=== PATIENT | female | born 1935 | race Caucasian/White ===

== ENCOUNTER 2017-09-23 21:32 | Emergency (ER) | payer OTHER ==
[~2017-09-23] VITALS: Ht 147.3 cm; Wt 55.0 kg
[~2017-09-23 21:32] MED LIST: ALBU8.5H8 IH; ALEN70TA69 PO; ASPI-1198 PO; ATOR10TA84 PO; CALC600T2 PO; ESCI10TA PO; FOLI1TAB15 PO; HYDR1CAP2 PO; OMEG300C3 PO; RABE20TA60 PO; VALS160T2 PO
[2017-09-23] MEDS ORDERED: GABA-529 PO (21:47)
[2017-09-23] MEDS ORDERED: VALS1TAB75 PO (21:47)
[2017-09-23 22:24] LABS: BASOPHILS % (AUTO) 0.4 % (0.0-2.0); EOSINOPHILS % (AUTO) 0.6 % (1.0-6.0); HEMATOCRIT 43.3 % (36-46); HEMOGLOBIN 14.6 g/dL (12.0-16.0); LYMPHOCYTES # (AUTO) 1.9 K/uL (1.0-4.8); MEAN CORPUSCULAR HEMOGLOBIN 30.9 pg (26.0-34.0); MEAN CORPUSCULAR HGB CONC 33.8 G/dL (31.0-37.0); MEAN CORPUSCULAR VOLUME 91 fL (80-100); MONOCYTES # (AUTO) 0.6 K/uL (0.1-1.0); NEUTROPHILS # (AUTO) 10.1 K/uL (1.8-7.7); PLATELET COUNT (AUTO) 171 K/uL (150-450); RED BLOOD CELL COUNT(AUTO) 4.75 MIL/uL (4.00-5.20); RED CELL DISTRIBUTION WIDTH 14.4 % (11.5-14.5)
[2017-09-23] MEDS ORDERED: SODIUM CHLORIDE 0.9% 1,000 ML IV ONE (22:30)
[2017-09-23] MEDS ORDERED: ONDANSETRON HCL 4 MG TABLET PO ONE (22:30)
[2017-09-23 22:32] LABS: GLUCOSE,POINT OF CARE 133 MG/DL (70-110)
[2017-09-23 22:35] LABS: ANION GAP 4 mmol/L (8-16); CALCIUM, TOTAL 9.5 mg/dL (8.8-10.5); CARBON DIOXIDE 33 mmol/L (22-29); CHLORIDE 100 mmol/L (98-107); CREATININE 0.87 mg/dL (0.60-1.30); GLOMERULAR FILTR. RATE CALC > 60 mL/min (>60); GLUCOSE,RANDOM 156 mg/dL (70-110); POTASSIUM 3.2 mmol/L (3.5-5.1); SODIUM SERUM 137 mmol/L (136-145); UREA NITROGEN, BLOOD 23 mg/dL (7-18)
[2017-09-23 22:37] LABS: PROTHROMBIN TIME 10.7 SEC (9.4-11.6)
[2017-09-23 22:44] LABS: ALANINE AMINOTRANSFERASE 27 U/L (12-78); ALBUMIN 3.8 g/dL (3.4-5.0); ALKALINE PHOSPHATASE 40 U/L (46-116); ASPARTATE AMINOTRANSFERASE 26 U/L (15-37); BILIRUBIN,TOTAL 0.9 mg/dL (0.1-1.0); TOTAL PROTEIN, SERUM 7.7 g/dL (6.4-8.2)
[2017-09-23] MEDS ORDERED: POTASSIUM CHLORIDE 20 MEQ ER TABLET PO ONE (23:45)
[2017-09-24 01:04] VITALS: BP 114/62
== END 2017-09-24 01:09 | disposition home or self-care (01) ==
LOC: EMS 21:34
DX: R42 Dizziness and giddiness (principal); R51 Headache; E78.00 Pure hypercholesterolemia, unspecified; I10 Essential (primary) hypertension; J45.909 Unspecified asthma, uncomplicated; Z79.82 Long term (current) use of aspirin
CPT/HCPCS: 36415; 70450; 80053; 82948; 82962; 84484; 85025; 85610; 93005; 96360; 96361; 99285; J7030; Q0162

== ENCOUNTER 2019-01-10 10:59 | Emergency (ER) | payer OTHER ==
[~2019-01-10] VITALS: Ht 149.9 cm; Wt 54.5 kg
[~2019-01-10 10:59] MED LIST changes: -ALBU8.5H8 IH; -ALEN70TA69 PO; -CALC600T2 PO; -ESCI10TA PO; -FOLI1TAB15 PO; +GABA-529 PO; -OMEG300C3 PO; -RABE20TA60 PO; -VALS160T2 PO; +VALS1TAB75 PO
[2019-01-10] MEDS ORDERED: ALEN70TA10 PO (11:10)
[2019-01-10] MEDS ORDERED: FOLI1 PO (11:13)
[2019-01-10] MEDS ORDERED: CALC-1194 PO (11:13)
[2019-01-10] MEDS ORDERED: VITAD1000 PO (11:13)
[2019-01-10] MEDS ORDERED: FISH1CAP63 PO (11:13)
[2019-01-10] MEDS ORDERED: MIRT15 PO (11:13)
[2019-01-10] MEDS ORDERED: TEMA7.5C17 PO (11:13)
[2019-01-10 11:30] LABS: GLUCOSE,POINT OF CARE 121 MG/DL (70-110)
[2019-01-10 12:27] LABS: BASOPHILS % (AUTO) 0.3 % (0.0-2.0); EOSINOPHILS % (AUTO) 0.1 % (1.0-6.0); HEMATOCRIT 41.9 % (36-46); HEMOGLOBIN 13.7 g/dL (12.0-16.0); LYMPHOCYTES # (AUTO) 0.9 K/uL (1.0-4.8); MEAN CORPUSCULAR HEMOGLOBIN 29.4 pg (26.0-34.0); MEAN CORPUSCULAR HGB CONC 32.7 G/dL (31.0-37.0); MEAN CORPUSCULAR VOLUME 90 fL (80-100); MONOCYTES # (AUTO) 0.4 K/uL (0.1-1.0); MONOCYTES % (AUTO) 3.2 % (2.0-9.0); NEUTROPHILS % (AUTO) 89.4 % (40.0-70.0); PLATELET COUNT (AUTO) 180 K/uL (150-450); RED BLOOD CELL COUNT(AUTO) 4.65 MIL/uL (4.00-5.20); RED CELL DISTRIBUTION WIDTH 14.3 % (11.5-14.5)
[2019-01-10 12:32] LABS: CALCIUM, TOTAL 9.6 mg/dL (8.8-10.5); CREATININE 0.94 mg/dL (0.60-1.30); POTASSIUM 3.7 mmol/L (3.5-5.1)
[2019-01-10 12:35] LABS: PROTHROMBIN TIME 10.1 SEC (9.4-11.6)
[2019-01-10 12:57] LABS: ALBUMIN 3.7 g/dL (3.4-5.0); TOTAL PROTEIN, SERUM 7.2 g/dL (6.4-8.2)
[2019-01-10] MEDS ORDERED: ONDANSETRON HCL 4 MG/2 ML VIAL IVP ONE (13:00)
[2019-01-10] MEDS ORDERED: ASPIRIN 325 MG TABLET PO ONE (13:00)
[2019-01-10] MEDS: NITROGLYCERIN 2% (1 GM=INCH) PACKET TP SCH ×2 (13:02→15:12)
[2019-01-10 13:11] LABS: BILIRUBIN,URINE NEGATIVE (NEGATIVE); GLUCOSE, URINE (UA) NEGATIVE (NEGATIVE); KETONES,URINE TRACE mg/dL (NEGATIVE); LEUKOCYTE ESTERASE ,URINE SMALL (NEGATIVE); NITRATE,URINE NEGATIVE (NEGATIVE); OCCULT BLOOD,URINE NEGATIVE (NEGATIVE); PROTEIN,URINE TRACE (NEGATIVE); UROBILINOGEN,URINE 0.2 mg/dL (<=1.0)
[2019-01-10 13:13] LABS: APPEARANCE,URINE SLIGHTLY CLOUDY (CLEAR)
[2019-01-10 13:18] LABS: BACTERIA,URINE Few /HPF (None Seen); RBC,URINE 0-2 /HPF (0-2); SQUAMOUS EPITHELIAL CELL,UR Many /LPF (None Seen)
[2019-01-10 16:26] VITALS: BP 88/51
== END 2019-01-10 17:05 | disposition short-term general hospital (02) ==
LOC: EMS 11:00
DX: R07.89 Other chest pain (principal); R00.1 Bradycardia, unspecified; R53.1 Weakness; R11.2 Nausea with vomiting, unspecified; E11.9 Type 2 diabetes mellitus without complications; E78.00 Pure hypercholesterolemia, unspecified; I10 Essential (primary) hypertension; G47.00 Insomnia, unspecified; J45.909 Unspecified asthma, uncomplicated; M81.0 Age-related osteoporosis without current pathological fracture; F32.9 Major depressive disorder, single episode, unspecified; Z79.899 Other long term (current) drug therapy
CPT/HCPCS: 36415; 71045; 80053; 81001; 82550; 82962; 83880; 84484; 85025; 85610; 85730; 93005; 96374; 99291; J2405